=== PATIENT | female | born 1960 | race Caucasian/White ===

== ENCOUNTER 2017-03-03 19:38 | Emergency (ER) | payer OTHER ==
[~2017-03-03] VITALS: Ht 165.1 cm; Wt 108.9 kg
--- NOTE | ~2017-03-03 | CR63 ---
[facility] A Service [facility] RADIOLOGY TEXT RESULTS PATIENT: MARIELLA EMERSON LOCATION: SED : 64 UNIT #: [id number] AGE: [address]: Wilma Felix MD SEX: F ORDER DR: [id number] [place] [id number] MR#: [id number] #: [id number] NAME: MARIELLA EMERSON : 1960 SEX: F STUDY DATE/TIME: 03/03/2017 20:15 UNIT: SED ROOM: STUDY DESCRIPTION: CR Chest 2 View Attending Physician: Wilma Felix M.D. Ordering Physician: Wilma Felix M.D. MEDICAL IMAGING REPORT This report is preliminary unless electronic signature is present. EXAM Chest x-ray 2 views HISTORY Shortness of air. Cough and congestion for 2 weeks. TECHNIQUE Two views of the chest reviewed. COMPARISON STUDIES 02/20/2017. FINDINGS There is re-demonstration of nodular opacities in the right upper lobe and a tiny nodular opacity in the left upper lobe. The right hemidiaphragm is again mildly elevated and there is asymmetric prominence of the right heart border, which could be due to ectasia of the ascending thoracic aorta. None of these findings has changed. The nodules have been stable dating back to 2014, per prior report, and are therefore most consistent with granulomata. There is some patchy airspace disease at the medial right lung base and subtle increase in vascular markings on comparison to prior study. Please correlate for clinical evidence for subtle volume overload. Ectasia of the ascending thoracic aorta is most often seen secondary to hypertension or aortic valvular disease and please evaluate further clinically. IMPRESSION 1. On comparison to prior studies, there is some increase in the central vascular markings and patchy alveolar disease of the right lung base. Clinical correlation and followup to resolution recommended. Please correlate for any clinical concern for subtle volume overload versus aspiration or early pneumonia. Heart size is normal but there is, [facility] A Service [facility] RADIOLOGY TEXT RESULTS PATIENT: MARIELLA EMERSON [place] [facility] [place] 64 UNIT #: [id number] AGE: [address]: Wilma Felix MD SEX: F ORDER DR: again, apparently ectasia of the ascending thoracic aorta. This is a chronic finding and is most often seen in the setting of hypertension or aortic valvular disease. Please evaluation further clinically. 2. Stable nodular densities in the right upper lobe. 3. Chronic mild elevation of the right hemidiaphragm. 4. No pleural effusion or pneumothorax. 5. Patient might benefit from a followup with a chest CT with contrast. This would allow for better characterization of parenchymal findings as well as contour of the thoracic aorta. STAT * RESULT Dictated by... Prisca Alvarez M.D. THIS IS AN ELECTRONICALLY VERIFIED REPORT Prisca Alvarez M.D. at 03/03/2017 11:14 PM SAC/pcl TD: 03/03/2017 20:43 JOB #: [id number] MEDICAL IMAGING REPORT Page 1 of 1
[2017-03-03] MEDS ORDERED: POTASSIUM CHLO10 ME1 PO (20:14)
[2017-03-03] MEDS ORDERED: ASPIRIN PO (20:16)
[2017-03-03] MEDS ORDERED: LIPITOR PO (20:22)
[2017-03-03] MEDS ORDERED: ACCUPRIL PO (20:23)
[2017-03-03] MEDS ORDERED: HCTZ PO (20:24)
[2017-03-03] MEDS ORDERED: ALBUTEROL MININEB INH (20:27)
== END 2017-03-03 21:05 | disposition home or self-care (01) ==
LOC: SED 19:38
DX: J18.9 Pneumonia, unspecified organism (principal); J45.909 Unspecified asthma, uncomplicated; I10 Essential (primary) hypertension; F17.200 Nicotine dependence, unspecified, uncomplicated; Z88.0 Allergy status to penicillin
CPT/HCPCS: 71020; 99285